=== PATIENT | female | born 1995 | race Caucasian/White ===

== ENCOUNTER 2018-08-08 01:29 | Inpatient (IN) ==
[2018-08-08 01:42] VITALS: BMI 36.8
[2018-08-08 01:56] LABS: AMNISURE ROM TEST THERE IS A RUPTURE (NO RUPTURE)
[2018-08-08] MEDS ORDERED: PITOCIN ONE ×2 (02:42→02:43)
[2018-08-08] MEDS ORDERED: D5 LR 1000 ML 1,000 ML ONE (02:42)
[2018-08-08] MEDS ORDERED: D5 1/2 NS 1000 ML 1,000 ML ONE (02:43)
[2018-08-08] MEDS ORDERED: D5LR 1L W PITOCIN 10 UNITS/L 10 UNITS/1,000 ML BAG IV PRN (02:48)
[2018-08-08] MEDS ORDERED: PITOCIN IVP ONE (02:48)
[2018-08-08] MEDS ORDERED: NUBAIN INJ 200 MG VIAL MULTIDOSE IVP PRN (02:48)
[2018-08-08] MEDS ORDERED: D5 1/2 NS 1000 ML 1,000 ML IV SCH (03:00)
[2018-08-08] MEDS ORDERED: NUBAIN INJ 10 ONE (04:08)
[2018-08-08] MEDS ORDERED: LR 1000 ML IV 1,000 ML ONE (06:47)
[2018-08-08] MEDS ORDERED: FENTANYL INJ 100 mcg ONE (06:47)
[2018-08-08] MEDS ORDERED: NAROPIN EPIDURAL 0.2% + FENTANYL 90MCG 60 ML EPI ONE (06:48)
--- NOTE | 2018-08-08 06:51 | DR.OB ---
OB Quick Note - Assessment/Plan Assessment/Plan: L&D 08/08/18 at 6:40am Pitocin=16mu/min. S-No complaint except CTX. SROM about 12:30am per patient. O-Afebrile,VSS [id number] with good LTV, +accel, no decel. CTX=q 1 1/2 to 2 min., moderate by palpation. CVX=3cm/90%/0/VTX SROM of clear fluid noted. IUPC and FSE placed. A-IUP at 38 4/7 weeks in labor (SROM) Polyhydramnios P-Cont. pitocin induction Anticipate
--- NOTE | 2018-08-08 12:10 | DR.OB ---
OB Quick Note - Assessment/Plan Assessment/Plan: L&D 08/08/18 at 12:05pm Pitocin=10mu/min. S-No complaint. O-Afebrile,VSS [id number] with good LTV, +accel, no decel. CTX=q 1 1/2 min., about 45-55mmHg CVX=8cm/100%/0 A-IUP at 38 4/7 weeks in labor with SROM P-Cont. pitocin augmentation Anticipate
[2018-08-08] MEDS: D5 1/2 NS 1000 ML 1,000 ML with PITOCIN 20 UNITS IV SCH ×2 (13:45)
[2018-08-08] MEDS ORDERED: PHENERGAN INJ 25 MG IM PRN (13:54)
[2018-08-08] MEDS ORDERED: DERMOPLAST SPRAY TOP PRN (15:19)
[2018-08-08] MEDS ORDERED: MILK OF MAGNESIA PO PRN (15:19)
[2018-08-08] MEDS ORDERED: ADACEL or BOOSTRIX TDaP VACCINE IM ONE (15:19)
[2018-08-08] MEDS ORDERED: AMBIEN PO PRN (15:19)
[2018-08-08] MEDS: MOTRIN TAB 800 MG PO PRN (20:43)
[2018-08-08] MEDS: ZANTAC PO SCH (20:43)
[2018-08-09] MEDS: D5 1/2 NS 1000 ML 1,000 ML with PITOCIN 20 UNITS IV SCH ×2 (02:04)
[2018-08-09 04:11] LABS: HEMATOCRIT 36.2 % (36.0-47.0); HEMOGLOBIN 12.1 g/dL (12.0-16.0)
[2018-08-09] MEDS: MOTRIN TAB 800 MG PO PRN (04:45)
--- NOTE | 2018-08-09 07:12 | DR.OB ---
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 Head delivered over intact perineum. No nuchal cord. Nose and mouth bulb suctioned. Body delivered over intact perineum. Cord clamped x 2 and cut. Infant handed to attendant. Cord sent for gases. Placenta delivered spontaneously / intact / 3 vessel cord. No CVX tears noted. A small superficial tear noted at introitus, not hemostatic, requiring a figure-of-8 stitch of 0-vicryl. Viable female , VTX/OA, wt=7'5" and 9/9, stable to NBN. Mother stable to RR. [id number].
[2018-08-09] MEDS: ZANTAC PO SCH (08:15)
[2018-08-09] MEDS ORDERED: PRENATAL PLUS PO SCH (09:00)
[2018-08-09 12:30] VITALS: BP 115/56
== END 2018-08-09 15:15 | disposition home or self-care (01) | DRG 807 ==
LOC: ER 01:31 → LD 02:33 → MED/SURG 15:19
PROVIDERS: ADMIT Specialist; ATTEND Specialist
DX: Z3A.38 38 weeks gestation of pregnancy; O40.3XX0 Polyhydramnios, third trimester, not applicable or unspecified; Z37.0 Single live birth; Z23 Encounter for immunization; O70.0 First degree perineal laceration during delivery
CPT/HCPCS: 36415; 59409; 84112; 85014; 85018; 90715; 96365; 99284; A4216; A4222; S0197; J2300; J2590; J3010; J7120; J7121; S5010

== ENCOUNTER 2020-09-01 06:30 | Inpatient (IN) ==
[2020-09-01] MEDS ORDERED: D5 1/2 NS 1000 ML 1,000 ML IV ONE (06:41)
[2020-09-01] MEDS ORDERED: PITOCIN ONE (06:41)
[2020-09-01] MEDS ORDERED: BETADINE SOLN ONE (06:42)
[2020-09-01] MEDS ORDERED: D5LR 1L W PITOCIN 10 UNITS/L 10 UNITS/1,000 ML BAG IV ONE (06:42)
[2020-09-01] MEDS ORDERED: D5 1/2 NS 1L W PITOCIN 20 UNITS/L 20 UNITS/1,000 ML BAG IV ONE (06:42)
--- NOTE | 2020-09-01 07:19 | DR.OB ---
OB Quick Note - Assessment/Plan Assessment/Plan: L&D 09/01/20 at 7:00am S-No complaint. O-Afebrile,VSS [id number] with good LTV, +accel, no decel. CTX=occasional, mild CVX=3cm/75%/0/VTX AROM with clear fluid. IUPC and FSE placed. A-IUP at 38 5/7 weeks for induction Oligohydramnios GERD P-Begin pitocin induction Anticipate
[2020-09-01] MEDS ORDERED: REGLAN INJ 10 MG VIAL IVP PRN (07:31)
[2020-09-01] MEDS ORDERED: D5 1/2 NS 1000 ML 1,000 ML IV SCH (07:31)
[2020-09-01] MEDS ORDERED: NUBAIN INJ 200 MG VIAL MULTIDOSE IVP PRN (07:31)
[2020-09-01] MEDS ORDERED: PHENERGAN INJ 25 MG IM PRN ×2 (07:31→12:10)
[2020-09-01] MEDS ORDERED: MORPHINE SULFATE INJ 2 MG INJ IVP PRN (07:31)
[2020-09-01] MEDS ORDERED: D5LR 1L W PITOCIN 10 UNITS/L 10 UNITS/1,000 ML BAG IV PRN (07:31)
[2020-09-01] MEDS ORDERED: PITOCIN IVP ONE (07:31)
[2020-09-01] MEDS ORDERED: STADOL INJ IVP PRN (07:38)
[2020-09-01] MEDS ORDERED: FENTANYL INJ 100 mcg ONE ×2 (08:10→08:11)
[2020-09-01] MEDS ORDERED: LR 1000 ML IV 1,000 ML IV ONE (08:10)
[2020-09-01] MEDS ORDERED: NAROPIN EPIDURAL 0.2% 100 ML ONE (08:11)
[2020-09-01] MEDS ORDERED: STADOL INJ ONE (08:33)
[2020-09-01] MEDS ORDERED: EPHEDRINE SULFATE INJ ONE (09:15)
--- NOTE | 2020-09-01 12:10 | DR.OB ---
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 Head delivered over intact perineum. Nose and mouth bulb suctioned. Nuchal cord x 1 reduced. Body delivered over intact perineum. Cord clamped x 2 and cut. Infant handed to attendant. Cord sent for gases. Placenta delivered spontaneously / intact / 3 vessel cord. No CVX / vaginal / perineal tears noted. Viable male , VTX/OA, wt=8'13" and 8/9, stable to NBN. Mother stable to RR. [id number].
[2020-09-01] MEDS: D5 1/2 NS 1000 ML 1,000 ML with PITOCIN 20 UNITS IV SCH ×4 (13:35→22:53)
[2020-09-01] MEDS ORDERED: MILK OF MAGNESIA PO PRN (14:22)
[2020-09-01] MEDS ORDERED: MOTRIN TAB 800 MG PO PRN (14:22)
[2020-09-01] MEDS ORDERED: DERMOPLAST PAIN RELIEF SPRAY TOP PRN (14:22)
[2020-09-01] MEDS ORDERED: ADACEL or BOOSTRIX TDaP VACCINE IM ONE (14:22)
[2020-09-01] MEDS ORDERED: AMBIEN PO PRN (14:22)
[2020-09-02] MEDS: MOTRIN TAB 800 MG PO PRN ×2 (05:14→14:41)
[2020-09-02] MEDS: D5 1/2 NS 1000 ML 1,000 ML with PITOCIN 20 UNITS IV SCH ×4 (05:16→14:31)
[2020-09-02 05:22] LABS: HEMATOCRIT 35.7 % (36.0-47.0)
[2020-09-02] MEDS ORDERED: PROTONIX TAB 40 MG PO SCH (09:00)
[2020-09-02] MEDS ORDERED: PRENATAL PLUS PO SCH (09:00)
[2020-09-02] MEDS ORDERED: ADACEL or BOOSTRIX TDaP VACCINE IM ONE (14:00)
[2020-09-02 15:26] VITALS: BP 115/64
== END 2020-09-02 15:15 | disposition home or self-care (01) | DRG 807 ==
LOC: LD 06:30 → MED/SURG 14:40
PROVIDERS: ADMIT Specialist; ATTEND Specialist
DX: O41.03X0 Oligohydramnios, third trimester, not applicable or unspecified; Z37.0 Single live birth; Z23 Encounter for immunization; O99.613 Diseases of the digestive system complicating pregnancy, third trimester